=== PATIENT | female | born 1970 | race Caucasian/White ===

== ENCOUNTER → 2016-07-24 | Outpatient (CLI) | payer BC ==
[~2016-07-24] MED LIST: MULT-506 PO
--- NOTE | 2016-07-25 10:57 | MAMMOGRAPHY REPORT ---
BILATERAL DIGITAL SCREENING MAMMOGRAM TOMOSYNTHESIS WITH CAD: 07/24/2016 CLINICAL HISTORY: Routine screening. Patient has no complaints. TECHNIQUE: Breast tomosynthesis in addition to standard 2D mammography was performed. Current study was also evaluated with a Computer Aided Detection (CAD) system. COMPARISON: Comparison is made to exams dated: 07/20/2015 mammogram, 07/10/2013 mammogram, and 5 mammogram - [facility]. BREAST COMPOSITION: The tissue of both breasts is extremely dense, which lowers the sensitivity of mammography. FINDINGS: The parenchymal pattern is unchanged. No developing mass, architectural distortion or clu ster of suspicious microcalcifications is seen in either breast. IMPRESSION: ACR BI-RADS CATEGORY 2: BENIGN There is no mammographic evidence of malignancy. A 1 year screening mammogram is recommended. The p atient will receive written notification of the results. Approximately 10% of breast cancers are not detected with mammography. A negative mammographic repor t should not delay biopsy if a clinically suggestive mass is present. Charline Hankins M.D. ay/:07/24/2016 18:33:38 Public Health Technician: Jackelyn VILLARREAL(R)(M), [facility] letter sent: Normal 1/2 BI-RADS Code: ACR BI-RADS Category 2: Benign
== END | disposition home or self-care (01) ==
LOC: C.MAMM 07:15
PROVIDERS: ATTEND Obstetrics & Gynecology
DX: Z12.31 Encounter for screening mammogram for malignant neoplasm of breast (principal)

== ENCOUNTER → 2016-09-08 | Outpatient (CLI) | payer BC ==
--- NOTE | 2016-09-08 16:49 | DIAGNOSTIC IMAGING REPORT ---
RIGHT FOOT MIN 3 VIEWS ROUTINE CLINICAL HISTORY: Right foot pain COMPARISON: None. DISCUSSION: There are postsurgical changes of first and fifth metatarsal osteotomies. Osteophytic changes are present the level the first metatarsal phalangeal joint. There is a small particular calcification. There are no acute fractures. There are no erosive or destructive changes. IMPRESSION: Postsurgical change. No acute fractures or subluxations identified. Electronically signed by: John Garcia M.D. 09/08/2016 4:47 PM Dictated Date/Time: 09/08/2016 4:44 PM
== END | disposition home or self-care (01) ==
LOC: C.RADBC 15:49
PROVIDERS: ATTEND Family Medicine
DX: M79.671 Pain in right foot (principal); Z98.890 Other specified postprocedural states

== ENCOUNTER → 2017-02-09 | Outpatient (CLI) | payer BC ==
[2017-02-09 11:07] LABS: BASO % 0.2 %; BASO ABS # 0.01 K/uL (0-0.2); COMPLETE YES; HEMATOCRIT 40.4 % (37-47); IG% 0.2 %; LYMPH % 33.4 %; LYMPH ABS # 1.46 K/uL (1.2-3.4); MEAN CELL VOLUME 92.2 fL (80-100); MEAN CORPUSCULAR HEMOGLOBIN 30.6 pg (25-34); MEAN CORPUSCULAR HGB CONC 33.2 g/dl (32-36); MEAN PLATELET VOLUME 10.1 fL (7.4-10.4); MONO % 9.8 %; NEUT % 53.4 %; PLATELET COUNT 234 K/uL (130-400); RED BLOOD COUNT 4.38 M/uL (4.2-5.4); WHITE BLOOD COUNT 4.37 K/uL (4.8-10.8)
[2017-02-09 11:26] LABS: ALT/SGPT 24 U/L (12-78); AST/SGOT 18 U/L (15-37); BLOOD UREA NITROGEN 14 mg/dl (7-18); BUN/CREATININE RATIO 13.6 (10-20); CALCIUM 8.7 mg/dl (8.5-10.1); CARBON DIOXIDE 29 mmol/L (21-32); CHLORIDE 107 mmol/L (98-107); GLUCOSE 90 mg/dl (70-99); POTASSIUM 4.3 mmol/L (3.5-5.1); SODIUM 141 mmol/L (136-145); URIC ACID 4.1 mg/dl (2.6-7.2)
[2017-02-09 11:30] LABS: ALB/GLOB RATIO 1.3 (0.9-2); ALKALINE PHOSPHATASE 52 U/L (45-117); CHOLESTEROL 190 mg/dl (0-200); CHOLESTEROL/HDL RATIO 2.8; HDL CHOLESTEROL 69 mg/dl; LDL CHOLESTEROL CALCULATED 111 mg/dl; TRIGLYCERIDES 50 mg/dl (0-150); VERY LOW DENSITY LIPOPROT CALC 10 mg/dl
== END | disposition home or self-care (01) ==
LOC: C.LABBC 07:42
PROVIDERS: ATTEND Nurse Practitioner Adult Health
DX: Z00.00 Encounter for general adult medical examination without abnormal findings (principal); M85.80 Other specified disorders of bone density and structure, unspecified site; M79.673 Pain in unspecified foot

== ENCOUNTER → 2017-03-19 | Outpatient (CLI) | payer BC ==
[2017-03-19 10:17] LABS: CALCIUM URINE 9.1 mg/dl
[2017-03-20 16:36] LABS: ALBUMIN 4.3 G/DL (3.8-4.8); GAMMA GLOBULIN 0.9 G/DL (0.8-1.7); TOTAL PROTEIN 6.7 G/DL (6.2-8.3)
== END | disposition home or self-care (01) ==
LOC: C.LAB1850 06:56
PROVIDERS: ATTEND Internal Medicine Rheumatology
DX: E61.8 Deficiency of other specified nutrient elements (principal)

== ENCOUNTER → 2017-07-26 | Outpatient (CLI) | payer BC ==
--- NOTE | 2017-07-26 15:17 | MAMMOGRAPHY REPORT ---
BILATERAL DIGITAL SCREENING MAMMOGRAM TOMOSYNTHESIS WITH CAD: 07/26/2017 CLINICAL HISTORY: Routine screening. TECHNIQUE: Breast tomosynthesis in addition to standard 2D mammography was performed. Current study was also evaluated with a Computer Aided Detection (CAD) system. COMPARISON: Comparison is made to exams dated: 07/24/2016 mammogram, 07/20/2015 mammogram, 07/17/2014 sd mogram, and 07/10/2013 mammogram - [facility]. BREAST COMPOSITION: The tissue of both breasts is extremely dense, which lowers the sensitivity of m ammography. FINDINGS: No suspicious masses, calcifications, or areas of architectural distortion are noted in ei ther breast. There has been no significant interval change compared to prior exams. IMPRESSION: ACR BI-RADS CATEGORY 1: NEGATIVE There is no mammographic evidence of malignancy. A 1 year screening mammogram is recommended. The pa tient will receive written notification of the results. Approximately 10% of breast cancers are not detected with mammography. A negative mammographic report should not delay biopsy if a clinically suggestive mass is present. Katherine Samano M.D. ah/:07/26/2017 07:47:35 Cashier Greeter: Destini VILLARREAL(R)(M), [facility] letter sent: Normal 1/2 BI-RADS Code: ACR BI-RADS Category 1: Negative
== END | disposition home or self-care (01) ==
LOC: C.MAMM 07:28
PROVIDERS: ATTEND Obstetrics & Gynecology
DX: Z12.31 Encounter for screening mammogram for malignant neoplasm of breast (principal)

== ENCOUNTER 2024-08-23 13:54 | Observation (INO) ==
--- NOTE | 2024-08-23 14:17 | Emergency Department Note ---
ED Provider Note History of Present Illness Chief Complaint: Abdominal Pain Stated Complaint: RUQ ABD,NAUSEA Time Seen by Provider: 08/23/24 14:02 Source: patient Mode of arrival: ambulatory Limitations: no limitations This is a 54-year-old female who presents to the emergency department for evaluation of right upper quadrant abdominal pain. Patient reports that pain started around 3 AM (11 hours ago) and has been persistent since then. Pain is in the right upper quadrant and radiates through to the back. Pain is worse with movements, sitting straight up and taking a deep breath. Denies any history of similar pain. She tried Excedrin Migraine without relief. Denies any history of abdominal surgeries other than a tubal ligation. She has some associated nausea, no vomiting. Denies fever/chills, rash, changes in bowel movements, urinary symptoms. Home Medications Medication Instructions Recorded Confirmed Type bupropion HCl 300 mg 24 hr tablet, 300 mg PO QAM 08/23/24 08/23/24 History extended release (Wellbutrin XL) venlafaxine 150 mg 150 mg PO PM 08/23/24 08/23/24 History capsule,extended release 24 hr Allergies Allergy/AdvReac Type Severity Reaction Status Date / Time No Known Drug Allergies Allergy Verified 08/23/23 06:56 Past Med/Surg History Problem List Acute cholecystitis BMI 26.0-26.9,adult Abnormal electrocardiogram [ECG] [EKG] Secondary hyperparathyroidism (Acute) Depression (Acute) Dense breast tissue (Acute) Chronic constipation (Acute) Hypermobility arthralgia (Acute) Osteopenia (Acute) Premenstrual dysphoric disorder (Acute) Vitamin D insufficiency (Acute) Surgical History History of tonsillectomy and adenoidectomy S/P bunionectomy S/P tubal ligation Family History Mother Diabetes Hypertension Lung cancer Father , age 48 Pancreatic cancer Sister No problems noted. Denies family history of Ovarian cancer Prostate cancer Myocardial infarction Breast cancer Colorectal cancer Social History Smoking Status: Never smoker Second Hand Exposure: No; Do You Dip or Chew Tobacco: No; Hx Alcohol Use: No Hx Substance Use: No Preferred Language: Indonesian Communication Ability: Effective Visual Impairment: No Limitations Hearing Ability: Normal Seafood Packer Required: No marital status: Current Living Situation: Spouse current occupational status: employed current occupation: [employer] Feels Safe at Home: Yes Childhood Exposure to Second-Hand Smoke: Yes Diet: regular Diet Comment: regular caffeine: Yes during the past year weight has: increased > 10 lbs Dental Care, Regularly: Yes Physical Activity Frequency: Daily Seatbelt Use: always Sunscreen Use: Yes Assistive Devices: Contacts and Glasses Physical Exam Vital Signs Vital Signs - 24 hr 08/23/24 13:57 08/23/24 14:17 08/23/24 14:35 Temperature 36.8 C Temperature Source Temporal Artery Scan Pulse Rate 108 H 99 H 89 Pulse Rate [Right Finger] Pulse Rhythm Pulse Rhythm [Right Finger] Pulse Strength [Right Finger] Respiratory Rate 18 18 Respiratory Effort / Characteristics Non-Labored Respiratory Depth Normal Respiratory Pattern Regular Blood Pressure 127/86 Blood Pressure [Right Arm] Blood Pressure Mean 99 Blood Pressure Mean [Right Arm] Blood Pressure Position [Right Arm] Pulse Oximetry 99 97 Oxygen Delivery Method Room Air Room Air Sepsis Recent Fever Within 48 Hours No Sepsis New/Unexplained Change in Mental Status N/A Sepsis Action Taken by Nursing No Action Required 08/23/24 16:00 08/23/24 17:20 08/23/24 17:20 Temperature Temperature Source Pulse Rate 95 H Pulse Rate [Right Finger] 85 85 Pulse Rhythm Regular Pulse Rhythm [Right Finger] Regular Regular Pulse Strength [Right Finger] Normal Normal Respiratory Rate 18 16 18 Respiratory Effort / Characteristics Non-Labored Non-Labored Respiratory Depth Normal Normal Respiratory Pattern Regular Blood Pressure Blood Pressure [Right Arm] 125/76 140/87 Blood Pressure Mean Blood Pressure Mean [Right Arm] 92 104 Blood Pressure Position [Right Arm] Lying Lying Pulse Oximetry 99 93 93 Oxygen Delivery Method Room Air Room Air Room Air Sepsis Recent Fever Within 48 Hours Sepsis New/Unexplained Change in Mental Status Sepsis Action Taken by Nursing 08/23/24 18:09 08/23/24 18:11 Temperature Temperature Source Pulse Rate 87 Pulse Rate [Right Finger] 91 H Pulse Rhythm Pulse Rhythm [Right Finger] Regular Pulse Strength [Right Finger] Normal Respiratory Rate 16 Respiratory Effort / Characteristics Non-Labored Respiratory Depth Normal Respiratory Pattern Regular Blood Pressure Blood Pressure [Right Arm] 143/84 H Blood Pressure Mean Blood Pressure Mean [Right Arm] 103 Blood Pressure Position [Right Arm] Lying Pulse Oximetry 96 Oxygen Delivery Method Room Air Sepsis Recent Fever Within 48 Hours Sepsis New/Unexplained Change in Mental Status Sepsis Action Taken by Nursing VITALS: Vitals are noted on the nurse's note and reviewed by myself. GENERAL: This is a 54-year-old female, in no acute distress, well-developed well-nourished. SKIN: The skin was without rashes. EYES: Pupils equal round and reactive to light and accommodation. No scleral icterus. MOUTH: Mucous membranes moist. NECK: Supple without nuchal rigidity. HEART: Regular rate and rhythm without murmurs gallops or rubs. LUNGS: Clear to auscultation bilaterally without wheezes, rales or rhonchi. ABDOMEN: Positive bowel sounds x 4. Soft, tenderness in the right upper quadrant. No guarding or rebound tenderness. NEURO: Patient was alert and oriented to person place and time. Course Administered Medications Discontinued Medications Piperacillin Sod/Tazobactam Sod (Zosyn) 4.5 gm in 100 mls @ 200 mls/hr IV NOW ONE; Protocol Stop: 08/23/24 17:35 Last Infusion: 08/23/24 18:08 Dose: Infused Documented By: Admin: 08/23/24 17:16 Dose: 200 mls/hr Documented By: DARRIN Ioversol (Optiray 320 100ml) 92 ml IV ONCE ONE Stop: 08/23/24 15:27 Last Admin: 08/23/24 15:26 Dose: 92 ml Documented By: REI Ketorolac Tromethamine (Ketorolac Tromethamine 15 Mg/Ml Vial) 15 mg IV NOW STA Stop: 08/23/24 14:16 Last Admin: 08/23/24 14:25 Dose: 15 mg Documented By: GUERRERO Ondansetron HCl (Ondansetron Inj 2 Mg/Ml 2 Ml Vial) 4 mg IV NOW STA Stop: 08/23/24 14:16 Last Admin: 08/23/24 14:25 Dose: 4 mg Documented By: GUERRERO Medical Decision Making Differential Diagnosis Appendicitis, ovarian cyst, ovarian torsion, TOA, PID, infections, diverticulitis, UTI, obstruction, mesenteric ischemia, aortic pathology, inflammatory bowel disease, renal colic, PUD, pancreatitis, biliary pathology, hernia, volvulus, constipation, as well as other pathologies. Laboratory Data Attestation: I reviewed the patient's lab results. 08/23/24 14:20 08/23/24 14:20 Lab Results 08/23/24 08/23/24 Range/Units 14:20 15:42 WBC 8.33 (4.8-10.8) K/ul RBC 4.72 (4.20-5.40) M/uL Hgb 14.1 (12.0-16.0) g/dl Hct 42.9 (37.0-47.0) % MCV 90.9 (80.0-100.0) fL MCH 29.9 (25.0-34.0) pg MCHC 32.9 (32.0-36.0) g/dL RDW Std Deviation 41.0 (36.4-46.3) fL RDW Coeff of Mt 12.2 (11.5-14.5) % Plt Count 225 (130-400) K/uL MPV 10.0 (9.4-12.4) fL Immature Gran % (Auto) 0.2 % Neut % (Auto) 66.7 % Lymph % (Auto) 21.8 % [place] % (Auto) 9.1 % Eos % (Auto) 2.0 % Baso % (Auto) 0.2 % Neut # (Auto) 5.54 (1.40-6.50) K/uL Lymph # (Auto) 1.82 (1.20-3.40) K/uL [place] # (Auto) 0.76 H (0.11-0.59) K/uL Eos # (Auto) 0.17 (0.00-0.50) K/uL Baso # (Auto) 0.02 (0.00-0.20) K/uL Immature Gran # (Auto) 0.02 (0.01-0.20) K/uL Sodium 138 (136-145) mmol/L Potassium 4.0 (3.5-5.1) mmol/L Chloride 103 (98-107) mmol/L Carbon Dioxide 32 (21-32) mmol/L Anion Gap 3 (3-11) BUN 19 (6-23) mg/dl Creatinine 1.11 (0.6-1.2) mg/dl Est Cr Clr Drug Dosing 63.7 ml/min eGFR 58.70 BUN/Creatinine Ratio 17.1 (10-20) Glucose 100 H (70-99(Fasting)) mg/dl Calcium 9.4 (8.6-10.3) mg/dl Total Bilirubin 0.4 (0.2-1.0) mg/dl AST 22 (13-39) U/L ALT 14 (7-52) U/L Alkaline Phosphatase 52 (34-104) U/L Total Protein 7.5 (6.0-8.3) gm/dl Albumin 4.7 (3.4-5.0) gm/dl Globulin 2.8 (2.5-4.0) gm/dl Albumin/Globulin Ratio 1.7 (0.9-2) Lipase 41 (11-82) U/L Urine Color Yellow Urine Appearance Clear (Clear) Urine pH 5.5 (4.5-7.5) Ur Specific [place] > 1.045 H (1.000-1.030) Urine Protein Negative (Negative) Urine Glucose (UA) Negative (Negative) Urine Ketones Trace H (Negative) Urine Blood Negative (Negative) Urine Nitrite Negative (Negative) Urine Bilirubin Negative (Negative) Urine Urobilinogen Negative (Negative) Ur Leukocyte Esterase 2+ H (Negative) Urine WBC (Auto) 21-50 H (0-5) /hpf Urine RBC (Auto) 0-2 (0-2) /hpf U Hyaline Cast (Auto) 3-5 H (0-2) /lpf U Epithel Cells (Auto) 6-10 H (0-2) /hpf Urine Bacteria (Auto) 3+ H (None Seen) Ur Renal Epithelial Cell Present A (None Presnt) /lpf Imaging Data Attestation: I personally reviewed and interpreted this imaging study as follows: Radiologist's Impression: Abdomen/Pelvis CT 08/23/24 14:16 EXAM: CT abd pelvis IV con only CLINICAL HISTORY: RUQ pain. TECHNIQUE: CT of the abdomen and pelvis was performed with contrast, with the following protocol: axial images with, and reconstructed coronal and sagittal images. One of the following dose reduction techniques was utilized for this exam: Automated exposure control, adjustment of the mA and/or kV according to patient size, and use of iterative reconstruction. 92 mL Optiray 320 was given as an IV contrast. COMPARISON: No prior studies available for comparison. FINDINGS: Abdomen: Gallbladder and Biliary System: The gallbladder is distended and has wall thickening and few gallstones. Pericholecystic edema noted. Findings are suggestive of acute cholecystitis. Clinical correlation is advised. The common bile duct is dilated, measuring about 9mm. Liver: Hepatomegaly, measuring 17 cm at the largest craniocaudal span in the right lobe. Normal in shape, and density. No focal lesions, cysts, or masses were identified. Hepatic vasculature and biliary ducts are unremarkable. Pancreas: Pancreatic head, body, and tail are visualized and appear normal in size and density. No pancreatic masses or calcifications were noted. The pancreatic duct is not dilated. Spleen: Normal in size, shape, and density. No splenic lesions or masses were identified. Appendix: The appendix is not visible, but no inflammatory process in the right iliac fossa. Kidneys and Adrenal Glands: Both kidneys are normal in size, shape, and position. Cortical thickness is within normal limits. No renal calculi or hydronephrosis. Adrenal glands are unremarkable with no evidence of masses or hyperplasia. Pelvis: Urinary Bladder: Normal in contour and wall thickness. No intraluminal lesions identified. Uterus: Normal in size and contour. No masses or abnormal thickening. Ovaries: Not well visualized, but no gross abnormalities noted. Bowel: Fecal loading in the large bowel noted. No evidence of bowel obstruction or wall thickening. Bones and Soft Tissues: Degenerative changes of the lumbar spine. 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 IMPRESSION: 1. The gallbladder is distended and has wall thickening and a few gallstones. Pericholecystic edema noted. Findings are suggestive of acute cholecystitis. Clinical correlation is advised. 2. The common bile duct is dilated, measuring about 9mm. 3. Hepatomegaly, 17 cm. 4. 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 Electronically signed by Hussein Chahal 08-23-2024 4:46 PM Gallbladder Ultrasound 08/23/24 17:06 EXAM: US Abdomen Limited Right Upper Quadrant INDICATION: Right upper quadrant pain TECHNIQUE: Real-time ultrasound of the right upper quadrant with image documentation. COMPARISON: No relevant prior studies available. FINDINGS: Liver: Upper normal size. Slightly echogenic. Smooth contour. No ductal dilatation or mass. Gallbladder: The gallbladder is distended and contains sludge and multiple stones. There is wall edematous and thickened to 6 mm. There is mild pericholecystic fluid. Negative sonographic Duvall sign but the patient is medicated. Common bile duct: Upper normal distal common bile duct of 7 mm. No visible ductal stone. No dilation. Pancreas: No significant abnormality noted. Right kidney: 9.5 cm long. Normal cortical thickness and echotexture. No mass, stone or hydronephrosis. Other vasculature: Main portal vein patent with normal directional flow. IMPRESSION: 1. Sonographic findings of cholelithiasis with acute cholecystitis. 2. Suspect mild hepatic steatosis. ACT 112: N/A Electronically signed by Derrick Esmer 08-23-2024 7:32 PM MDM Narrative This patient is a 54-year-old female who presents to the emergency department for evaluation of right upper quadrant abdominal pain which started at 3 AM. Patient has had some nausea, no vomiting. She is hemodynamically stable and afebrile. Labs revealed no leukocytosis, anemia or concerning electrolyte abnormalities. LFTs are within normal limits. Lipase is not elevated. Urinalysis with bacteria, question infection versus contamination. CT of the abdomen/pelvis with IV contrast was performed and notes findings suggestive of acute cholecystitis. Common bile duct is dilated, however again LFTs are within normal limits and no stone is seen. I did speak with general surgery who will admit the patient. Patient was given a dose of Zosyn. They did request right upper quadrant ultrasound which was ordered. Patient was informed of all findings. She was treated with IV Toradol and Zofran in the emergency department with significant improvement of symptoms. Discharge Plan Visit Data Chief Complaint: Abdominal Pain Stated Complaint: RUQ ABD,NAUSEA ED Provider: Yany Recinos ED Midlevel Provider: Mesha Fernandez Forms Stand Alone Forms: My [facility] [employer] - [facility] Its [facility] [employer]ip [employer]op Prescriptions Prescriptions: No Action venlafaxine 150 mg capsule,extended release 24hr 150 mg PO PM bupropion HCl [Wellbutrin XL] 300 mg tablet extended release 24 hr 300 mg PO QAM Referrals Referrals: Chaya Saeed CRNP [Primary Care Provider] -
[2024-08-23] MEDS: ONDANSETRON INJ 2 MG/ML 2 ML VIAL IV STA (14:25)
[2024-08-23] MEDS: KETOROLAC TROMETHAMINE 15 MG/ML VIAL IV STA (14:25)
[2024-08-23 14:40] LABS: Basophils # (auto) 0.02 K/uL (0.00-0.20); Basophils % (auto) 0.2 %; Eosinophils # (auto) 0.17 K/uL (0.00-0.50); Hematocrit (blood only) 42.9 % (37.0-47.0); Hemoglobin 14.1 g/dl (12.0-16.0); Immature Granulocytes # (auto) 0.02 K/uL (0.01-0.20); Immature Granulocytes % (auto) 0.2 %; Lymphocytes # (auto) 1.82 K/uL (1.20-3.40); Lymphocytes % (auto) 21.8 %; Mean Corpuscular Hemoglobin 29.9 pg (25.0-34.0); Mean Corpuscular Hgb Conc 32.9 g/dL (32.0-36.0); Mean Corpuscular Volume 90.9 fL (80.0-100.0); Monocytes # (auto) 0.76 K/uL (0.11-0.59); Monocytes % (auto) 9.1 %; Neutrophils # (auto) 5.54 K/uL (1.40-6.50); Neutrophils % (auto) 66.7 %; Platelet Count 225 K/uL (130-400); RDW Coefficient of Variation 12.2 % (11.5-14.5); Red Blood Count 4.72 M/uL (4.20-5.40); White Blood Count 8.33 K/ul (4.8-10.8)
[2024-08-23 14:54] LABS: Albumin Globulin Ratio 1.7 (0.9-2); Albumin Level 4.7 gm/dl (3.4-5.0); BUN Creatinine Ratio 17.1 (10-20); Bilirubin,Total 0.4 mg/dl (0.2-1.0); Calcium 9.4 mg/dl (8.6-10.3); Creatinine Clr Calc Pharmacy 63.7 ml/min; Globulin 2.8 gm/dl (2.5-4.0); Total Protein 7.5 gm/dl (6.0-8.3)
[2024-08-23] MEDS: OPTIRAY 320 100ml IV ONE (15:26)
--- NOTE | 2024-08-23 16:47 | CT Scan Report ---
EXAM: CT abd pelvis IV con only CLINICAL HISTORY: RUQ pain. TECHNIQUE: CT of the abdomen and pelvis was performed with contrast, with the following protocol: axial images with, and reconstructed coronal and sagittal images. One of the following dose reduction techniques was utilized for this exam: Automated exposure control, adjustment of the mA and/or kV according to patient size, and use of iterative reconstruction. 92 mL Optiray 320 was given as an IV contrast. COMPARISON: No prior studies available for comparison. FINDINGS: Abdomen: Gallbladder and Biliary System: The gallbladder is distended and has wall thickening and few gallstones. Pericholecystic edema noted. Findings are suggestive of acute cholecystitis. Clinical correlation is advised. The common bile duct is dilated, measuring about 9mm. Liver: Hepatomegaly, measuring 17 cm at the largest craniocaudal span in the right lobe. Normal in shape, and density. No focal lesions, cysts, or masses were identified. Hepatic vasculature and biliary ducts are unremarkable. Pancreas: Pancreatic head, body, and tail are visualized and appear normal in size and density. No pancreatic masses or calcifications were noted. The pancreatic duct is not dilated. Spleen: Normal in size, shape, and density. No splenic lesions or masses were identified. Appendix: The appendix is not visible, but no inflammatory process in the right iliac fossa. Kidneys and Adrenal Glands: Both kidneys are normal in size, shape, and position. Cortical thickness is within normal limits. No renal calculi or hydronephrosis. Adrenal glands are unremarkable with no evidence of masses or hyperplasia. Pelvis: Urinary Bladder: Normal in contour and wall thickness. No intraluminal lesions identified. Uterus: Normal in size and contour. No masses or abnormal thickening. Ovaries: Not well visualized, but no gross abnormalities noted. Bowel: Fecal loading in the large bowel noted. No evidence of bowel obstruction or wall thickening. Bones and Soft Tissues: Degenerative changes of the lumbar spine. 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 IMPRESSION: 1. The gallbladder is distended and has wall thickening and a few gallstones. Pericholecystic edema noted. Findings are suggestive of acute cholecystitis. Clinical correlation is advised. 2. The common bile duct is dilated, measuring about 9mm. 3. Hepatomegaly, 17 cm. 4. 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 Electronically signed by Hussein Chahal 08-23-2024 4:46 PM
[2024-08-23 17:06] LABS: Appearance Urine Clear (Clear); Bacteria Urine Automated 3+ (None Seen); Bilirubin Urine Negative (Negative); Blood Urine Negative (Negative); Color Urine Yellow; Glucose Urine UA Negative (Negative); Ketones Urine Trace (Negative); Leukocyte Esterase Urine 2+ (Negative); Nitrite Urine Negative (Negative); Protein Urine Negative (Negative); RBC Urine Automated 0-2 /hpf (0-2); Renal Epithelial Cells Urine Present /lpf (None Presnt); Specific Gravity Urine > 1.045 (1.000-1.030); Urobilinogen Urine Negative (Negative); WBC Urine Automated 21-50 /hpf (0-5); pH Urine 5.5 (4.5-7.5)
[2024-08-23] MEDS ORDERED: ONDANSETRON INJ 2 MG/ML 2 ML VIAL IV PRN (17:06)
[2024-08-23] MEDS ORDERED: HYDROmorphone HCL 2 MG TAB PO PRN (17:06)
[2024-08-23] MEDS: PIPERACILLIN/TAZOBACTAM 4.5 GM/100 ML BAG IV ONE (17:16)
[2024-08-23] MEDS ORDERED: oxyCODONE HCL IR 5 MG TAB (IMMEDIATE RELEASE) PO PRN (17:16)
--- NOTE | 2024-08-23 17:51 | Hospitalist Consultation ---
Date of Consultation August 23, 2024 Assessment & Plan (1) Acute cholecystitis: Annie is a 54-year-old female with a past medical history of hypermobility, depression on bupropion who presented to the ER for abdominal pain and who has a distended gallbladder with wall thickening and pericholecystic edema suggestive of acute cholecystitis. CBD is dilated at 9 mm. There is no hyperbilirubinemia or transaminitis. Acute cholecystitis CTA/P: distended gallbladder with wall thickening and pericholecystic edema suggestive of acute cholecystitis. CBD is dilated at 9 mm. Continue Zosyn Multimodal pain control with Tylenol, hydromorphone ordered. Zofran formulates every 4 hours as needed for nausea/vomiting Surgery consulted She has no history of type II DM, insulin use, coronary disease, heart failure, CVA/TIA, thromboembolism, or bleeding complications. Creatinine is 1.11, platelet count is normal, hemoglobin is normal. RCRI 0 points class I low risk. Outpatient EKG normal sinus rhythm, QTc 432 without territorial ischemia. Gallbladder ultrasound pending. MRCP/ERCP/GI consult based on results and concern for choledocho. No transaminitis/hyperbilirubinemia at time of admission but does have CBD dilation on CT ?Asymptomatic bacteruria - No polyuria, dysuria, or urgency UA with bacteria/leukocyte esterase no nitrites, some epithelial cell contamination. Treatment is not indicated for this however is covered with Zosyn regardless Depression Continue bupropion 300 mg extended release AM, venlafaxine 150mg XR qHS. Weight loss, weight maintenance Has followed with weight loss program with [facility] primary care in the past. Of note previously had a short MT interval, on multiple follow-up EKGs normal sinus rhythm with normal MT. No evidence of WPW, no delta wave on follow-up. Was subsequently started on phentermine for weight maintenance but did not have good benefit from this and was discussed continued over 2 months ago. Removed from at list DVT prophylaxis: Ambulate, SCDs. Pending surgical evaluation. Lovenox after immediate postop. CODE STATUS: Full code Diet: N.p.o. midnight History of Present Illness History of Present Illness Annie is a 54-year-old female with a past medical history of hypermobility, depression on bupropion who presented to the ER for abdominal pain and who has a distended gallbladder with wall thickening and pericholecystic edema suggestive of acute cholecystitis. CBD is dilated at 9 mm. There is no hyperbilirubinemia or transaminitis. Patient admitted to surgical service for acute cholecystitis we are consulted for medical management of comorbidities. Annie is seen at the bedside Woke up at 3am this morning with RIGHT sided abdominal pain and tenderness wrapping towards the front of her rib case +Nausea. [facility] and then was referred to the ER No pain like this before No prior history of gallstones/biliary disease No fevers, had some chills this morning but no temperature. No appetite today, but has a little appetite after zofran. Overall feels improved after ER meds No dysuria, no dysuria No history of RUQ pain or pain with meals Takes buproprion 300mg XL daily qAM, and effexor 150mg qhs. Last took 300mg buproprion this AM, took effexor last night. No longer takes phentermine, last dose was 2.5months No heart disease, no heart attacks, no history of DM or insulin, no history of strokes or ministrokes, no history of HTN. No history of arrythmia. Brief concern for short MT, this was not present on repeat EKGs and no evidence of WPW. Had anesthesia for tubal ligation and bunyon surgery in the past. No difficulties with anesthesia. Weight ranged from 190lbs-150s as an adult with weight maintenance, diet, exercise. Medical History: Reviewed Medications: Reviewed Surgical History: Reviewed Family history: Reviewed Allergies: Reviewed. NKDA. Social History: No current or former tobacco use, no tobacco use. No recreational drug use Code Status: Surrogate DM would Demar Brown, . Full Code. Allergies Allergy/AdvReac Type Severity Reaction Status Date / Time No Known Drug Allergies Allergy Verified 08/23/23 06:56 Home Medications Medication Instructions Recorded Confirmed Type bupropion HCl 300 mg 24 hr tablet, 300 mg PO QAM 08/23/24 08/23/24 History extended release (Wellbutrin XL) venlafaxine 150 mg 150 mg PO PM 08/23/24 08/23/24 History capsule,extended release 24 hr Patient History Surgical History History of tonsillectomy and adenoidectomy S/P bunionectomy S/P tubal ligation Family History Mother Diabetes Hypertension Lung cancer Father , age 48 Pancreatic cancer Sister No problems noted. 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 NAD. Cooperative. HEENT: Atraumatic, normocephalic. Vision/hearing grossly intact. PERLAA Pulm: CTAB A&P. -wheezes, -rales, -rhonchi. Symmetrical chest rise. No increased work of breathing. No respiratory distress. Cardiac: RRR, -mrg. Radial pulses intact and symmetrical. Abdominal: +RUQ TTP. No rebound/guarding. Abd soft. Results & Data Results & Data Vital Signs (Past 12 Hours) Vital Signs Temp Pulse Pulse Resp BP BP Pulse Ox 08/23/24 17:20 85 18 140/87 93 08/23/24 17:20 95 H 16 93 08/23/24 16:00 85 18 125/76 99 08/23/24 14:35 89 18 97 08/23/24 14:17 99 H 08/23/24 13:57 36.8 C 108 H 18 127/86 99 O2 Del Method 08/23/24 17:20 Room Air 08/23/24 17:20 Room Air 08/23/24 16:00 Room Air 08/23/24 14:35 Room Air 08/23/24 14:17 08/23/24 13:57 Room Air PG Care Time/CCT Total # of Minutes Spent Total Time Spent with Patient: Total time spent is greater than 50% in coordination of care (as documented) at patient's floor/unit and/or counseling patient: Coding Level of Care Code 14498 IN/OBS CONSULT LVL 4,60M Diagnoses Acute cholecystitis K81.0
[2024-08-23 18:11] VITALS: RESP 16
--- NOTE | 2024-08-23 19:32 | Ultrasound Report ---
EXAM: US Abdomen Limited Right Upper Quadrant INDICATION: Right upper quadrant pain TECHNIQUE: Real-time ultrasound of the right upper quadrant with image documentation. COMPARISON: No relevant prior studies available. FINDINGS: Liver: Upper normal size. Slightly echogenic. Smooth contour. No ductal dilatation or mass. Gallbladder: The gallbladder is distended and contains sludge and multiple stones. There is wall edematous and thickened to 6 mm. There is mild pericholecystic fluid. Negative sonographic Duvall sign but the patient is medicated. Common bile duct: Upper normal distal common bile duct of 7 mm. No visible ductal stone. No dilation. Pancreas: No significant abnormality noted. Right kidney: 9.5 cm long. Normal cortical thickness and echotexture. No mass, stone or hydronephrosis. Other vasculature: Main portal vein patent with normal directional flow. IMPRESSION: 1. Sonographic findings of cholelithiasis with acute cholecystitis. 2. Suspect mild hepatic steatosis. ACT 112: N/A Electronically signed by Esmer Meza 08-23-2024 7:32 PM
[2024-08-23] MEDS: ACETAMINOPHEN 325 MG TAB PO PRN (20:46)
[2024-08-23] MEDS: PIPERACILLIN/TAZOBACTAM 4.5 GM/100 ML BAG IV SCH (21:22)
[2024-08-23] MEDS: VENLAFAXINE HCL XR 150 MG CAPXR PO SCH (21:23)
[2024-08-24 07:54] VITALS: BP 94/61; PULSE 83; TEMP 98.8; O2SAT 95
[2024-08-24] MEDS: buPROPion XL 300 MG TABCR PO SCH (08:25)
--- NOTE | 2024-08-24 10:21 | History & Physical Report ---
Date of Service August 24, 2024 Assessment & Plan (1) Acute cholecystitis: Plan: Symptoms greatly improved, no leukocytosis, afebrile. I discussed cholecystectomy with Annie this am. She would prefer to go home and follow up as an outpatient for the procedure. She believes she can tolerate a diet and be discharged. We would discharge her on antibiotics and plan to get her scheduled for the next 2-3 weeks. Admission and Anticipated Discharge Date Admission Date: August 23, 2024 History of Present Illness Chief Complaint: RUQ abdominal pain Primary Care Provider: MICHELLE Loredo Pt presented to the ED with persistent RUQ pain and nausea. Denies F/C. She presented to the ED where she was found to be afebrile, HD, without leukocytosis, normal LFTs, cholelithiasis and acute cholecystitis by CT and US. She was admitted for observation with supportive care to discuss surgical options based on her ongoing symptoms. She was started on IV abx in the form of Zosyn. Today she states she feels much better with substantially improved symptoms. Allergies Allergy/AdvReac Type Severity Reaction Status Date / Time No Known Drug Allergies Allergy Verified 08/23/23 06:56 Home Medications Medication Instructions Recorded Confirmed Type bupropion HCl 300 mg 24 hr tablet, 300 mg PO QAM 08/23/24 08/23/24 History extended release (Wellbutrin XL) venlafaxine 150 mg 150 mg PO PM 08/23/24 08/23/24 History capsule,extended release 24 hr amoxicillin 875 mg-potassium 1 tab PO Q12H #14 tabs 08/24/24 Rx clavulanate 125 mg tablet oxycodone-acetaminophen 5 mg-325 1 - 2 tab PO .q4-6h PRN pain, for 08/24/24 Rx mg tablet (Percocet) initial therapy, max 6 tabs per day #3 tabs Past Med/Surg History Problem List Acute cholecystitis BMI 26.0-26.9,adult Abnormal electrocardiogram [ECG] [EKG] Secondary hyperparathyroidism (Acute) Depression (Acute) Dense breast tissue (Acute) Chronic constipation (Acute) Hypermobility arthralgia (Acute) Osteopenia (Acute) Premenstrual dysphoric disorder (Acute) Vitamin D insufficiency (Acute) Surgical History History of tonsillectomy and adenoidectomy S/P bunionectomy S/P tubal ligation Family History Mother Diabetes Hypertension Lung cancer Father , age 48 Pancreatic cancer Sister No problems noted. Denies family history of Ovarian cancer Prostate cancer Myocardial infarction Breast cancer Colorectal cancer Social History Smoking Status: Never smoker Second Hand Exposure: No; Do You Dip or Chew Tobacco: No; Hx Alcohol Use: No Hx Substance Use: No Preferred Language: Australian Communication Ability: Effective Visual Impairment: No Limitations Hearing Ability: Normal Rotary Soil Stabilizer Required: No Beliefs That Will Affect Care: None marital status: Current Living Situation: Spouse current occupational status: employed current occupation: Nephrologist's Office Feels Safe at Home: Yes Childhood Exposure to Second-Hand Smoke: Yes Diet: regular Diet Comment: regular caffeine: Yes during the past year weight has: increased > 10 lbs Dental Care, Regularly: Yes Physical Activity Frequency: Daily Seatbelt Use: always Sunscreen Use: Yes Assistive Devices: Contacts and Glasses Review of Systems Review of Systems: all other review of systems is negative. Physical Exam Constitutional: average body habitus; not ill appearing, not in distress and not diaphoretic Respiratory: normal respiratory effort; no respiratory distress, no labored breathing and does not use accessory muscles Gastrointestinal (Abdomen): Inspection/Auscultation: abdomen normal to inspection; abdomen not distended Percussion/Palpation: + abdomen tender (mild TTP RUQ) and abdomen soft; no guarding Skin: no erythema warm and dry Results & Data Results & Data Vital Signs (Past 12 Hours) Vital Signs Temp Pulse Resp BP Pulse Ox O2 Del Method 08/24/24 07:52 37.1 C 83 16 94/61 L 95 Room Air PG Care Time/CCT Total # of Minutes Spent Total Time Spent with Patient: Total time spent is greater than 50% in coordination of care (as documented) at patient's floor/unit and/or counseling patient: Coding Level of Care Code 44205 INT INP/OBS CARE 1/40MIN Diagnoses Acute cholecystitis K81.0
[2024-08-24] MEDS: INFLUENZA VACC TS2024-25(6m+)/PF (IIV3) 0.5mL Syr IM ONE (11:06)
--- NOTE | 2024-08-25 14:38 | Discharge Summary ---
Date of Service August 24, 2024 Admission HPI Per Admitting Provider Pt presented to the ED with persistent RUQ pain and nausea. Denies F/C. She presented to the ED where she was found to be afebrile, HD, without leukocytosis, normal LFTs, cholelithiasis and acute cholecystitis by CT and US. She was admitted for observation with supportive care to discuss surgical options based on her ongoing symptoms. She was started on IV abx in the form of Zosyn. Today she states she feels much better with substantially improved symptoms. Principal Diagnosis acute cholecystitis Discharge Exam awake/alert, no distress Respiratory normal respiratory effort Gastrointestinal (Abdomen) Inspection/Auscultation: abdomen not distended Percussion/Palpation: + abdomen tender (mild tenderness to palpation in the RUQ) and abdomen soft Discharge Data Allergies Allergy/AdvReac Type Severity Reaction Status Date / Time No Known Drug Allergies Allergy Verified 08/23/23 06:56 Consultations 08/23/24 17:24 Consult Hospitalist Routine Ordered Studies 08/23/24 14:16 CT abd pelvis IV con only Stat 08/23/24 17:06 US gallbladder Stat Hospital Course (1) Acute cholecystitis: This is a 54yF who presented to the [facility] ED on 08/23/24 with complaints of right upper abdominal pain. Workup with a CT a/p and RUQ US showed evidence concerning for gallstones/sludge and concern for acute cholecystitis. WBC 8 and LFTs within normal limits. The patient was admitted and kept NPO with IVF and IV abx. Medicine consulted on the case for medical management. On the AM of 08/24 the patient was feeling much better. She had some mild discomfort to palpation in the RUQ but otherwise she states much improved. Options discussed with patient who prefer to be discharged to home with plans for outpatient cholecystectomy given her symptoms were greatly improved. She was trialed on a low fat diet which she tolerated without issues. Pain controlled. On 08/24 she was deemed stable for discharge to home. She was provided a prescription to continue on a course of antibiotics. She will either follow up with us in the office versus our office will call her with a surgical date in the very near future for cholecystectomy. Total Time Total Time Spent Total Time Spent (In Minutes): 15 Discharge Plan Discharge Items Patient Disposition: Home - Self-Care Reason For Visit: RUQ ABD, NAUSEA Discharge Diagnosis: cholecystitis Activity: Per Instructions section Lifting: Gradually increase as tolerated Bathing: No limitations Exercise/Sports: Rest today Driving/Machine Use: Resume 1 day after discharge Non-emergency contact: Surgeon Call non-emergency contact if: you have any medication questions, your symptoms worsen, your pain is not controlled, your pain is worsening, you have a fever and your temperature is above 101.5 Follow-up/Referrals: Chaya Saeed, MICHELLE [Primary Care Provider] - Diamond Puente, [Physician] - (please call to schedule follow up in the office within 1 week. you will discuss timing of removal of your gallbladder at this appointment) Diet: Low Fat Addtl Attending Provider Instructions: Please continue on a low fat diet until you follow up with surgery team to discuss timing of removal of your gallbladder. Please complete the full course of antibiotics prescribed to you If your pain worsening, you develop vomiting, fevers, or symptoms concerning to you please return to the ER for evaluation Pending Studies at Discharge: No Stand-Alone Forms: My [facility], Smoking Cessation Medications and DC Order Prescriptions: New oxycodone-acetaminophen [Percocet] 5-325 mg tablet 1 - 2 tab PO .q4-6h PRN (Reason: pain, for initial therapy, max 6 tabs per day) Qty: 3 0RF amoxicillin-pot clavulanate 875-125 mg tablet 1 tab PO Q12H Qty: 14 0RF Continued venlafaxine 150 mg capsule,extended release 24hr 150 mg PO PM bupropion HCl [Wellbutrin XL] 300 mg tablet extended release 24 hr 300 mg PO QAM Discharge Orders: Discharge Order (Routine); Ordered 08/24/24 Ordered By: Iva Presley/Other Patient Handouts: What Are Gallstones, ED Diet, Low Fat Admission Data Admit Date/Time: 08/23/24 17:07 Attending Provider: Diamond Puente Admit Provider: Diamond Puente Primary Care Provider: Chaya Saeed Other Providers: Dwain Barillas; Whitney Lopez; Juma Borges; Avni Hamilton; Ray García; Jarod Sepulveda; Faiza Goldsmith; Patricia Sanchez; Diamond Momin; Maria Eugenia Meek; Sudarshan Esquivel; Frieda Mahoney; Bobby Snyder; Juma Gomez; Velasquez Xie; Mark Connell; Oralia Sheffield; Ana Mclaughlin; Earline Jerez N; Poppy Diop; Lynda Bacon; Demond Lamb; John Castillo; Asif Ramos.; Chyna Turk; Eric Bloom; Sherita Cerrato; Ray Randall; Magda Vasquez; Nurys Celis; Anay Chaidez; Bradley Layton; Ad Ramirez; Gilberto Rose; Salazar Grigsby; Rosalba Olvera; Kulwant Galindo; Lay Mosqueda; Rachelle Recinos; Zee Carson; Elias Valadez; Hanh Day Other Interventions: Discharge Summary Assessment (RN) Last Done: 08/24/24 11:10 Coding Level of Care Code 54672 IN/OBS DISCH 30 MIN/LESS Diagnoses Acute cholecystitis K81.0
== END 2024-08-24 12:17 | disposition home or self-care (01) ==
LOC: SUATTDRO → 3N 13:54 → ED 13:54 → 3N 20:19